=== PATIENT | male | born 1970 | race Caucasian/White ===

== ENCOUNTER 2018-04-25 09:50 | Inpatient (IN) | payer BC ==
[2018-04-25 09:53] VITALS: BMI 27.3
--- NOTE | 2018-04-25 11:06 | ED PDOC ---
Arrival/HPI - General Chief Complaint: Abnormal Skin Integrity Time Seen by Provider: 04/25/18 10:22 Historian: Patient - History of Present Illness Narrative History of Present Illness (Text): 04/25/18 11:01 47 year old male, with no significant past medical history, presents to the emergency department complaining of a boil on his buttocks, for the past 3-4 days. Patient states he has had similar symptoms in the past and was treated with antibiotic suppository. Patient denies fevers, chills, headache, dizziness, chest pain, shortness of breath, dyspnea on exertion, cough, abdominal pain, nausea, vomiting, diarrhea, back pain, neck pain, or any other complaint. PMD: Dr. Lara Time/Duration: < week Symptom Course: Unchanged Activities at Onset: Light Context: Home Past Medical History - Provider Review Nursing Documentation Reviewed: Yes - Infectious Disease Hx of Infectious Diseases: None - Psychiatric Hx Substance Use: No - Anesthesia Hx Anesthesia: No Family/Social History - Physician Review Nursing Documentation Reviewed: Yes Family/Social History: No Known Family HX Smoking Status: Never Smoked Hx Alcohol Use: Yes Hx Substance Use: No Allergies/Home Meds Allergies/Adverse Reactions: Allergies No Known Allergies Allergy (Verified 06/14/16 15:43) Review of Systems - Physician Review All systems were reviewed & negative as marked: Yes - Review of Systems Constitutional: absent: Fevers Cardiovascular: absent: Chest Pain Physical Exam - Physical Exam Narrative Physical Exam (Text): 04/25/18 11:02 Constitutional: No acute distress. Head: Normocephalic. Atraumatic. Eyes: PERRL. ENT: Moist mucous membranes. Neck: Supple. Cardiovascular: Regular rate. Chest: No tenderness. Respiratory: Clear to auscultation bilaterally. GI: Soft. Nontender. Nondistended. Back: No CVA tenderness. Musculoskeletal: No tenderness or swelling of extremities. Skin: No rash. Neurologic: Alert, no focal deficit. Rectal Exam: fluctuant, erythrmatous tender mass at 3 o'clock. Vital Signs Reviewed: Yes Vital Signs Temp Pulse Resp BP Pulse Ox 04/25/18 09:56 97.7 F 55 L 18 145/91 H 98 Temperature: Afebrile Blood Pressure: Hypertensive Pulse: Bradycardic Respiratory Rate: Normal Appearance: Positive for: Well-Appearing, Non-Toxic, Comfortable Pain Distress: None Mental Status: Positive for: Alert and Oriented X 3 Medical Decision Making ED Course and Treatment: 04/25/18 11:06 Impression: 47 year old male who presents to the emergency department complaining of boil on buttocks. Plan: -- Reassess and disposition Prior Visits: Notes and results from previous visits were reviewed. Progress Notes: Dr. Mcfarlane consulted, will take patient to OR tomorrow for drainage and further evaluation as patient has recurrent perirectal abscess. Accepted to hospitalist case. - Scribe Statement The provider has reviewed the documentation as recorded by the Scribe Jud Camargo Provider Scribe Attestation: All medical record entries made by the Scribe were at my direction and personally dictated by me. I have reviewed the chart and agree that the record accurately reflects my personal performance of the history, physical exam, medical decision making, and the department course for this patient. I have also personally directed, reviewed, and agree with the discharge instructions and disposition. Disposition/Present on Arrival - Present on Arrival Any Indicators Present on Arrival: No History of DVT/PE: No History of Uncontrolled Diabetes: No Urinary Catheter: No History of Decub. Ulcer: No History Surgical Site Infection Following: None - Disposition Have Diagnosis and Disposition been Completed?: Yes Diagnosis: Perirectal abscess Disposition: HOSPITALIZED Disposition Time: 13:05 Patient Plan: Admission Condition: FAIR Referrals: FAMILY PROVIDER,NO [Non-Staff] - Follow up with primary Forms: 99Presents (Azeri)
[2018-04-25 12:16] LABS: BASO # 0.04 K/mm3 (0.0-2.0); BASO % 0.6 % (0.0-3.0); EOS # 0.2 (0.0-0.7); EOS % 2.7 % (1.5-5.0); GRAN # 3.5 (1.4-6.5); GRAN % 49.1 % (50.0-68.0); HEMOGLOBIN 16.2 g/dL (14.0-18.0); LYMPH # 2.9 (1.2-3.4); LYMPH % 40.4 % (22.0-35.0); MEAN CORPUSCULAR HEMOGLOBIN 28.2 pg (25.0-35.0); MEAN CORPUSCULAR HGB CONC 33.1 g/dl (31.0-37.0); MONO # 0.5 (0.1-0.6); MONO % 7.2 % (1.0-6.0); RBC 5.75 10^6/uL (3.5-6.1); RED CELL DISTRIBUTION WIDTH 13.3 % (11.5-14.5); WHITE BLOOD COUNT 7.1 10^3/uL (4.5-11.0)
[2018-04-25 12:22] LABS: INR 0.99; PARTIAL THROMBOPLASTIN TIME 33.5 Seconds (25.1-36.5); PROTHROMBIN TIME 11.4 SECONDS (9.4-12.5)
[2018-04-25 12:23] LABS: ALB/GLOB RATIO 1.3 (1.1-1.8); ALBUMIN 4.4 g/dL (3.0-4.8); ALT/SGPT 40 U/L (7-56); AST/SGOT 24 U/L (17-59); BLOOD UREA NITROGEN 14 mg/dL (7-21); CALCIUM 9.2 mg/dL (8.4-10.5); GFR NON-AFRICAN AMERICAN > 60
--- NOTE | 2018-04-25 13:03 | CP.PCM.CON ---
History of Present Illness - History of Present Illness History of Present Illness: General Surgery Consult Note for Dr. Mcfarlane Consult: Perianal abscess CC: "pain around buttocks" HPI: 47 year old male, no significant past medical history, presents with recurring perianal abscess at the 3 o clock position that started a few days ago. He had a previous perianal abscess in a different area about 1 year ago that resolved with PO antibiotics. Patient states pain is 8/10, that is worse with movement. He applied topical antibiotic ointment that improved symptoms. Tylenol also helped with the pain. Denies active discharge from the site. Denies bloody or mucous bowel movements, straining, constipation, or diarrhea. Patient has never had a colonoscopy or EGD. Denies fever, chills, nausea, vomiting, shortness of breath, chest pain, or urinary symptoms. PMH: hx of perianal abscess PSH: none FH: noncontributory SH: denies tobacco, illicit drugs, social drinker ALL: NKDA Meds: see MAR Review of Systems - Constitutional Constitutional: absent: Chills, Fever - EENT Eyes: absent: Blurred Vision, Change in Vision Nose/Mouth/Throat: absent: Nasal Congestion, Nasal Discharge - Cardiovascular Cardiovascular: absent: Chest Pain, Dyspnea - Respiratory Respiratory: absent: Cough, Dyspnea - Gastrointestinal Gastrointestinal: absent: Abdominal Pain, Change in Bowel Habits, Change in Stool Character, Constipation, Diarrhea, Excessive Flatus, Fecal Incontinence, Loose Stools, Melena, Nausea, Temesmus, Vomiting - Genitourinary Genitourinary: absent: Difficulty Urinating, Dysuria - Musculoskeletal Musculoskeletal: absent: Back Pain, Neck Pain - Integumentary Integumentary: absent: Bleeding Lesions, Changing Lesions - Neurological Neurological: absent: Confusion, Headaches - Psychiatric Psychiatric: absent: Anxiety, Depression Past Patient History - Infectious Disease Hx of Infectious Diseases: None - Past Social History Smoking Status: Never Smoked - PSYCHIATRIC Hx Substance Use: No - SURGICAL HISTORY Hx Surgeries: No - ANESTHESIA Hx Anesthesia: No Meds Allergies/Adverse Reactions: Allergies Allergy/AdvReac Type Severity Reaction Status Date / Time No Known Allergies Allergy Verified 06/14/16 15:43 Physical Exam - Constitutional Appears: Well, Non-toxic, No Acute Distress - Head Exam Head Exam: ATRAUMATIC, NORMAL INSPECTION, NORMOCEPHALIC - Eye Exam Eye Exam: EOMI - ENT Exam ENT Exam: Mucous Membranes Moist - Respiratory Exam Respiratory Exam: NORMAL BREATHING PATTERN - Cardiovascular Exam Cardiovascular Exam: REGULAR RHYTHM - GI/Abdominal Exam GI & Abdominal Exam: Normal Bowel Sounds, Soft. absent: Distended, Tenderness - Rectal Exam Rectal Exam: absent: Black Stool, Bloody Stool, Hemorrhoids Additional comments: 3 o clock site in prone position good rectal tone no visible hemorrhoids, skin tags, blood, or purulence perianal abscess, no fluctuance - firm, tender, mild erythema surrounding lesion, tracking into anal canal - Neurological Exam Neurological exam: Alert, Oriented x3 - Psychiatric Exam Psychiatric exam: Normal Affect, Normal Mood - Skin Skin Exam: Dry, Intact, Normal Color, Warm Results - Vital Signs Recent Vital Signs: Last Vital Signs Temp 97.7 F 04/25/18 09:56 Pulse 55 L 04/25/18 09:56 Resp 18 04/25/18 09:56 BP 145/91 H 04/25/18 09:56 Pulse Ox 98 04/25/18 09:56 - Labs Result Diagrams: 04/25/18 12:00 04/25/18 12:00 Labs: Laboratory Results - last 24 hr 04/25/18 04/25/18 04/25/18 12:00 12:00 12:00 WBC 7.1 RBC 5.75 Hgb 16.2 Hct 48.9 MCV 85.0 MCH 28.2 MCHC 33.1 RDW 13.3 Plt Count 201 MPV 11.0 Gran % 49.1 L Lymph % (Auto) 40.4 H [place] % (Auto) 7.2 H Eos % (Auto) 2.7 Baso % (Auto) 0.6 Gran # 3.50 Lymph # (Auto) 2.9 [place] # (Auto) 0.5 Eos # (Auto) 0.2 Baso # (Auto) 0.04 PT 11.4 INR 0.99 APTT 33.5 Sodium 139 Potassium 3.9 Chloride 107 Carbon Dioxide 25 Anion Gap 11 BUN 14 Creatinine 0.8 Est GFR ( Amer) > 60 Est GFR (Non-Af Amer) > 60 Random Glucose 99 Calcium 9.2 Total Bilirubin 0.9 AST 24 ALT 40 Alkaline Phosphatase 69 Total Protein 7.7 Albumin 4.4 Globulin 3.3 Albumin/Globulin Ratio 1.3 Assessment & Plan - Assessment and Plan (Free Text) Assessment: 47M w/ perianal abscess Plan: Pelvic MRI w/ contrast - f/u official read Pain control NPO IVF AM labs PT/INR EKG CXR I&D in OR tomorrow D/w Dr. Maeve Méndez PGY1
[2018-04-25] MEDS ORDERED: Lidocaine/Prilocaine 2.5%-2.5% Cream (5 gm) TOP PRN (13:20)
[2018-04-25] MEDS ORDERED: Iohexol 350 MG/100 ML VIAL ONE (16:24)
[2018-04-25] MEDS ORDERED: Gadodiamide 287 MG/ML VIAL (15ML) IV ONE (17:22)
[2018-04-25] MEDS ORDERED: Lactated Ringer's 1,000 ML IV SCH (19:00)
[2018-04-25] MEDS: metroNIDAZOLE IV 500 mg/100 ml 500 MG/100 ML BAG IVPB SCH (22:29)
[2018-04-25] MEDS ORDERED: Influenza Vaccine 60 mcg/0.5 mL SYR (4YR UP) IM ONE (22:46)
[2018-04-25] MEDS ORDERED: Pneumococcal 23-Valent Vaccine IM ONE (22:46)
--- NOTE | 2018-04-25 23:28 | CP.PCM.HP ---
<BlancoYanira donaldson - Last Filed: 04/26/18 00:13> History of Present Illness - History of Present Illness History of Present Illness: Yanira Simeon, PGY-1 Medicine H&P Note for: Dr. Harvey: CC: Boil near rectum Pt is a 47 yo M with no significant pmhx who presents to the ED for rosa isela-rectal abscess x3 days. Pt states that for the past 3 days he has noted painful defecation and a boil located near his rectum. He states that he has noted that the boil has been progressively getting larger and more painful over the past 3 days. He states that he has had a similar episode of this before 1 year ago, where he was given suppository abx and it relieved his boil. Pt denies noting any blood or discharge from boil noted either on stool after a BM or on the toilet paper. Pt reports that his was able to use some abx cream that she had from a previous surgery which she applied to the area and it has caused the boil to reduce in size, but continues to be painful. Pt currently denies fevers, chills, headache, SOB, cough, chest pain, palpitations, leg swelling, abd pain, n/v, c/d, dysuria, hematuria, numbness, or tingling. Pmhx: Denies Pshx: Denies Meds: Denies All: NKDA Social: Denies any tobacco hx, denies etoh or illicit drug use Fam: Mom: HTN, DM PMD: [facility] Pharm: [employer] [id number] Present on Admission - Present on Admission Any Indicators Present on Admission: No Review of Systems - Review of Systems Review of Systems: 12 point ROS reviewed and negative except for noted in HPI above Past Patient History - Infectious Disease Hx of Infectious Diseases: None - Past Social History Smoking Status: Never Smoked - CARDIAC Hx Cardiac Disorders: No - PULMONARY Hx Respiratory Disorders: No - NEUROLOGICAL Hx Neurological Disorder: No - HEENT Hx HEENT Problems: No - RENAL Hx Chronic Kidney Disease: No - ENDOCRINE/METABOLIC Hx Endocrine Disorders: No - HEMATOLOGICAL/ONCOLOGICAL Hx Blood Disorders: No - INTEGUMENTARY Hx Dermatological Problems: Yes Other/Comment: PERIRECTAL ABSCESS 04-25-18 - MUSCULOSKELETAL/RHEUMATOLOGICAL Hx Musculoskeletal Disorders: No Hx Falls: No - GASTROINTESTINAL Hx Gastrointestinal Disorders: No - GENITOURINARY/GYNECOLOGICAL Hx Genitourinary Disorders: No - PSYCHIATRIC Hx Psychophysiologic Disorder: No Hx Substance Use: No - SURGICAL HISTORY Hx Surgeries: No - ANESTHESIA Hx Anesthesia: No Meds Allergies/Adverse Reactions: Allergies Allergy/AdvReac Type Severity Reaction Status Date / Time No Known Allergies Allergy Verified 04/25/18 21:48 Physical Exam - Constitutional Appears: Well, No Acute Distress - Head Exam Head Exam: ATRAUMATIC, NORMAL INSPECTION, NORMOCEPHALIC - Eye Exam Eye Exam: EOMI, Normal appearance, PERRL - Respiratory Exam Respiratory Exam: Clear to Auscultation Bilateral, NORMAL BREATHING PATTERN. absent: Accessory Muscle Use, Decreased Breath Sounds, Rales, Rhonchi, Wheezes, Respiratory Distress - Cardiovascular Exam Cardiovascular Exam: RRR, +S1, +S2. absent: Gallop, Rubs, Systolic Murmur - GI/Abdominal Exam GI & Abdominal Exam: Normal Bowel Sounds, Soft. absent: Distended, Firm, Guarding, Rigid, Tenderness - Extremities Exam Extremities exam: Positive for: normal capillary refill, normal inspection, pedal pulses present. Negative for: pedal edema - Back Exam Back exam: NORMAL INSPECTION. absent: CVA tenderness (L), CVA tenderness (R) - Neurological Exam Neurological exam: Alert, Oriented x3 - Psychiatric Exam Psychiatric exam: Normal Affect, Normal Mood - Skin Skin Exam: Dry, Intact, Normal Color, Warm Results - Vital Signs Recent Vital Signs: Last Vital Signs Temp 97.9 F 04/25/18 22:15 Pulse 69 04/25/18 22:15 Resp 16 04/25/18 22:33 BP 140/96 H 04/25/18 22:15 Pulse Ox 98 04/25/18 22:15 - Labs Result Diagrams: 04/25/18 12:00 04/25/18 12:00 Labs: Laboratory Results - last 24 hr 04/25/18 04/25/18 04/25/18 12:00 12:00 12:00 WBC 7.1 RBC 5.75 Hgb 16.2 Hct 48.9 MCV 85.0 MCH 28.2 MCHC 33.1 RDW 13.3 Plt Count 201 MPV 11.0 Gran % 49.1 L Lymph % (Auto) 40.4 H [place] % (Auto) 7.2 H Eos % (Auto) 2.7 Baso % (Auto) 0.6 Gran # 3.50 Lymph # (Auto) 2.9 [place] # (Auto) 0.5 Eos # (Auto) 0.2 Baso # (Auto) 0.04 PT 11.4 INR 0.99 APTT 33.5 Sodium 139 Potassium 3.9 Chloride 107 Carbon Dioxide 25 Anion Gap 11 BUN 14 Creatinine 0.8 Est GFR ( Amer) > 60 Est GFR (Non-Af Amer) > 60 Random Glucose 99 Calcium 9.2 Total Bilirubin 0.9 AST 24 ALT 40 Alkaline Phosphatase 69 Total Protein 7.7 Albumin 4.4 Globulin 3.3 Albumin/Globulin Ratio 1.3 Blood Type Antibody Screen BBK History Checked 04/25/18 16:00 WBC RBC Hgb Hct MCV MCH MCHC RDW Plt Count MPV Gran % Lymph % (Auto) [place] % (Auto) Eos % (Auto) Baso % (Auto) Gran # Lymph # (Auto) [place] # (Auto) Eos # (Auto) Baso # (Auto) PT INR APTT Sodium Potassium Chloride Carbon Dioxide Anion Gap BUN Creatinine Est GFR ( Amer) Est GFR (Non-Af Amer) Random Glucose Calcium Total Bilirubin AST ALT Alkaline Phosphatase Total Protein Albumin Globulin Albumin/Globulin Ratio Blood Type B POSITIVE Antibody Screen Negative BBK History Checked No verified bt Assessment & Plan - Assessment and Plan (Free Text) Assessment: Pt is a 47 yo M with no significant pmhx who presents to the ED for rosa isela-rectal abscess x3 days. Abscess noted at 3 o'clock on rectal exam. Plan: 1. Rosa Isela-rectal abscess: - Surgery consulted - EKG, CXR, Coags ordered per surgical team - NPO after midnight - I&D in OR tomorrow per surgery - IVF - Flagyl 500mg, Unasyn 3gm IV - Hold all anti-coag meds Case seen and discussed with Dr. Wes Simeon DO Internal Medicine Resident PGY-1 <Osmin Harvey - Last Filed: 04/27/18 05:40> Results - Vital Signs Recent Vital Signs: Last Vital Signs Temp 97.5 F L 04/26/18 23:18 Pulse 85 04/26/18 23:18 Resp 16 04/26/18 23:18 BP 113/77 11/29/18 23:18 Pulse Ox 99 04/26/18 23:18 - Labs Result Diagrams: 04/26/18 07:00 04/26/18 07:00 Labs: Laboratory Results - last 24 hr 04/26/18 04/26/18 04/26/18 07:00 07:00 07:00 WBC 7.2 RBC 5.37 Hgb 15.0 Hct 45.3 MCV 84.4 MCH 27.9 MCHC 33.1 RDW 13.4 Plt Count 191 MPV 10.5 PT 11.2 INR 0.97 APTT 32.3 Sodium Potassium Chloride Carbon Dioxide Anion Gap BUN Creatinine Est GFR ( Amer) Est GFR (Non-Af Amer) Random Glucose Calcium Phosphorus Magnesium Urine Color Urine Appearance Urine pH Ur Specific [place] Urine Protein Urine Glucose (UA) Urine Ketones Urine Blood Urine Nitrate Urine Bilirubin Urine Urobilinogen Ur Leukocyte Esterase Blood Type Confirm B POSITIVE 04/26/18 04/26/18 07:00 11:00 WBC RBC Hgb Hct MCV MCH MCHC RDW Plt Count MPV PT INR APTT Sodium 140 Potassium 4.0 Chloride 109 H Carbon Dioxide 25 Anion Gap 10 BUN 13 Creatinine 0.9 Est GFR ( Amer) > 60 Est GFR (Non-Af Amer) > 60 Random Glucose 110 Calcium 8.7 Phosphorus 3.8 Magnesium 2.4 H Urine Color Yellow Urine Appearance Clear Urine pH 6.0 Ur Specific [place] 1.025 Urine Protein Negative Urine Glucose (UA) Negative Urine Ketones Negative Urine Blood Negative Urine Nitrate Negative Urine Bilirubin Negative Urine Urobilinogen 0.2 Ur Leukocyte Esterase Negative Blood Type Confirm Attending/Attestation - Attestation I have personally seen and examined this patient.: Yes I have fully participated in the care of the patient.: Yes I have reviewed all pertinent clinical information: Yes
[2018-04-26] MEDS: metroNIDAZOLE IV 500 mg/100 ml 500 MG/100 ML BAG IVPB SCH (05:36)
[2018-04-26 07:17] LABS: MEAN CELL VOLUME 84.4 fl (80.0-105.0); MEAN CORPUSCULAR HEMOGLOBIN 27.9 pg (25.0-35.0); MEAN CORPUSCULAR HGB CONC 33.1 g/dl (31.0-37.0); MEAN PLATELET VOLUME 10.5 fl (7.0-11.0); RBC 5.37 10^6/uL (3.5-6.1); RED CELL DISTRIBUTION WIDTH 13.4 % (11.5-14.5); WHITE BLOOD COUNT 7.2 10^3/uL (4.5-11.0)
--- NOTE | 2018-04-26 07:29 | RAD ---
Date of service: 04/25/2018 HISTORY: pre-op COMPARISON: No prior. FINDINGS: LUNGS: No active pulmonary disease. PLEURA: No significant pleural effusion identified, no pneumothorax apparent. CARDIOVASCULAR: No aortic atherosclerotic calcification present. Normal cardiac size. No pulmonary vascular congestion. OSSEOUS STRUCTURES: No significant abnormalities. VISUALIZED UPPER ABDOMEN: Normal. OTHER FINDINGS: None. IMPRESSION: No acute cardiopulmonary disease appreciated.
[2018-04-26 07:31] LABS: INR 0.97; PARTIAL THROMBOPLASTIN TIME 32.3 Seconds (25.1-36.5); PROTHROMBIN TIME 11.2 SECONDS (9.4-12.5)
[2018-04-26 07:33] LABS: BLOOD UREA NITROGEN 13 mg/dL (7-21); CALCIUM 8.7 mg/dL (8.4-10.5); GFR NON-AFRICAN AMERICAN > 60
--- NOTE | 2018-04-26 08:11 | CP.PCM.PN ---
<Familia Bunn - Last Filed: 04/26/18 13:57> Subjective - Date & Time of Evaluation Date of Evaluation: 04/26/18 Time of Evaluation: 07:30 - Subjective Subjective: Familia Bunn PGY-1 Progress Note for Hospitalist Service Patient seen and evaluated at bedside. No acute events reported overnight. Patient states rectal abscess has some associated pain, although it has improved since initial admission. Patient set to go to OR today for I&D. Objective - Vital Signs/Intake and Output Vital Signs (last 24 hours): Temp Pulse Resp BP Pulse Ox 97.9 F 69 16 140/96 H 98 04/25/18 22:15 04/25/18 22:15 04/25/18 22:33 04/25/18 22:15 04/25/18 22:15 Intake and Output: 04/26/18 04/26/18 06:59 18:59 Intake Total 1328 Balance 1328 - Medications Medications: Current Medications Lactated Ringer's (Lactated Ringer's) 1,000 mls @ 120 mls/hr IV .Q8H20M UMER Last Admin: 04/25/18 19:24 Dose: 120 mls/hr Metronidazole (Flagyl) 500 mg in 100 mls @ 100 mls/hr IVPB Q8 UMER; Protocol Last Admin: 04/26/18 05:36 Dose: 100 mls/hr Ampicillin Sodium/Sulbactam (Sodium 3 gm/ Sodium Chloride) 100 mls @ 200 mls/hr IVPB Q6 UMER; Protocol Last Admin: 04/26/18 05:37 Dose: 200 mls/hr Lidocaine/Prilocaine (Emla) 1 gm TOP Q2H PRN PRN Reason: Pain, moderate (4-7) Last Admin: 04/25/18 14:30 Dose: 1 gm - Labs Labs: 04/26/18 07:00 04/26/18 07:00 PT 11.2 SECONDS (9.4-12.5) 04/26/18 07:00 INR 0.97 04/26/18 07:00 APTT 32.3 Seconds (25.1-36.5) 04/26/18 07:00 - Additional Findings Additional findings: - Constitutional Appears: Well, No Acute Distress - Head Exam Head Exam: ATRAUMATIC, NORMAL INSPECTION, NORMOCEPHALIC - Eye Exam Eye Exam: EOMI, Normal appearance, PERRL - Respiratory Exam Respiratory Exam: Clear to Auscultation Bilateral, NORMAL BREATHING PATTERN. absent: Accessory Muscle Use, Decreased Breath Sounds, Rales, Rhonchi, Wheezes, Respiratory Distress - Cardiovascular Exam Cardiovascular Exam: RRR, +S1, +S2. absent: Gallop, Rubs, Systolic Murmur - GI/Abdominal Exam GI & Abdominal Exam: Normal Bowel Sounds, Soft. absent: Distended, Firm, Guarding, Rigid, Tenderness - Extremities Exam Extremities exam: Positive for: normal capillary refill, normal inspection, pedal pulses present. Negative for: pedal edema - Back Exam Back exam: NORMAL INSPECTION. absent: CVA tenderness (L), CVA tenderness (R) - Neurological Exam Neurological exam: Alert, Oriented x3 - Psychiatric Exam Psychiatric exam: Normal Affect, Normal Mood - Skin Skin Exam: Dry, Intact, Normal Color, Warm Rectal exam performed with nurse at bedside. 2 cm firm, tender non fluctuant perianal collection at 2 oclock with patient in lateral recumbent position Assessment and Plan - Assessment and Plan (Free Text) Assessment: Mr. Meyer is a 47 y/o M with history of multiple rectal abscesses controlle d on PO or topical ABx who presents for rectal pain, found to have rosa isela-rectal abscess. Plan: Rectal pain 2/2 Rosa Isela-rectal abscess vs hemmorhoid - OR this morning likely for incision and drainage. F/u path results - Surgery consulted - Dr. Mcfarlane - CXR shows no active cardiopulmonary disease - Pain control with Percocet - Zofran, Metoclopramide - Sitz baths - IVF LR @ 120 cc/hr - Flagyl 500mg, Unasyn 3gm IV q6 - F/u MRI pelvis Dispo: Regular diet, if tolerate can likely be discharged tonight/tomorrow per surgery recs Patient seen, case reviewed and plan approved by Dr. Emmanuel. Familia Bunn, PGY-1 <Dara Emmanuel - Last Filed: 04/28/18 11:57> Objective - Vital Signs/Intake and Output Vital Signs (last 24 hours): Temp Pulse Resp BP Pulse Ox 97.9 F 63 18 135/92 H 95 04/27/18 14:43 04/27/18 14:43 04/27/18 14:43 04/27/18 14:43 04/27/18 14:43 - Labs Labs: 04/26/18 07:00 04/26/18 07:00 PT 11.2 SECONDS (9.4-12.5) 04/26/18 07:00 INR 0.97 04/26/18 07:00 APTT 32.3 Seconds (25.1-36.5) 04/26/18 07:00 Attending/Attestation - Attestation I have personally seen and examined this patient.: Yes I have fully participated in the care of the patient.: Yes I have reviewed all pertinent clinical information, including history, physical exam and plan: Yes Notes (Text): 04/28/18 11:57 Medical record note made by the resident after discussion with my direction and input after the patient was personally seen and examined by me. I have reviewed the chart and agree that the record accurately reflects by personal performance of the history, physical exam, data review, and medical decision-making, in the course for the patient. I have also personally directed the plan of care.
[2018-04-26] MEDS ORDERED: Propofol 10 mg/ml Inj (20 ML) ONE (10:43)
[2018-04-26] MEDS ORDERED: Midazolam 2 MG/2 ML VIAL ONE (10:44)
[2018-04-26] MEDS ORDERED: Sevoflurane - Inhalation Anesthetic Liq (250 ml) ONE (11:01)
[2018-04-26 11:08] LABS: URINE BILIRUBIN NEGATIVE (NEGATIVE); URINE BLOOD NEGATIVE (NEGATIVE); URINE GLUCOSE (UA) NEGATIVE (NEGATIVE); URINE LEUKOCYTE ESTERASE NEGATIVE Leu/uL (NEGATIVE); URINE PROTEIN NEGATIVE mg/dL (<30 mg/dL); URINE UROBILINOGEN 0.2 E.U./dL (<1 E.U./dL)
[2018-04-26 11:11] LABS: URINE APPEARANCE CLEAR (CLEAR); URINE COLOR YELLOW (YELLOW)
[2018-04-26] MEDS ORDERED: Rocuronium 10 mg/ml (5 ml) ONE (11:23)
[2018-04-26] MEDS ORDERED: ePHEDrine 50 mg/ml Inj ONE (11:29)
[2018-04-26] MEDS ORDERED: Bupivacaine 0.25% 50 ML INJ IJ ONE (11:38)
[2018-04-26] MEDS ORDERED: Lidocaine 1% w Epi 1:100,000 Inj ONE (11:38)
[2018-04-26] MEDS ORDERED: Lidocaine 1% w Epi 1:100,000 Inj IJ ONE (12:05)
[2018-04-26] MEDS ORDERED: Bupivacaine 0.25% Inj(30mL) IJ ONE (12:05)
--- NOTE | 2018-04-26 12:31 | PCM.SURG1 ---
Surgeon's Initial Post Op Note - Surgeon's Notes Surgeon: Dr. Mcfarlane Instructor Industrial Design: Dr. Méndez Type of Anesthesia: General LMA, Block Regional, Local Pre-Operative Diagnosis: Perianal abscess Operative Findings: thrombosed external hemorrhoids, internal hemorrhoids Post-Operative Diagnosis: thrombosed external hemorrhoids Operation Performed: EUA, perineal ultrasound, hemorrhoidectomy, regional block Specimen/Specimens Removed: thrombosed hemorrhoid Estimated Blood Loss: EBL {In ML}: 15 Blood Products Given: N/A Drains Used: No Drains Post-Op Condition: Good Date of Surgery/Procedure: 04/26/18 Time of Surgery/Procedure: 12:31
[2018-04-26] MEDS ORDERED: Oxycodone/Acetaminophen 5/325 mg Tab PO PRN (12:32)
--- NOTE | 2018-04-26 13:54 | CARD ---
APPROVED REPORT Date of service: 04/25/2018 EKG Measurement Heart [id number] NM [id number] <Conclusion> Normal sinus rhythm Normal ECG
[2018-04-26] MEDS: Oxycodone/Acetaminophen 5/325 mg Tab PO PRN ×2 (14:27→20:41)
--- NOTE | 2018-04-26 15:55 | MRI ---
Date of service: 04/25/2018 PROCEDURE: MRI pelvis with and without gadolinium HISTORY: perianal abscess, possible fistula COMPARISON: Not available TECHNIQUE: Multiplanar, multi sequence imaging of the pelvis was performed with and without intravenous gadolinium administration. The examination was performed with a capsule marker adjacent to the area of concern along the gluteal crease. FINDINGS: There is a peripherally enhancing perianal collection at approximately the 7 o'clock position. This collection measures approximately different axial hand is sister fat 0.8 x 1.3 x 1.6 cm. No definite sinus tract is demonstrated. There is thin peripheral enhancement around a low signal center on post gadolinium fat sat images. The collection is seen just cephalad to the level of the cutaneous marker. There is no other collection identified. The prostate and seminal vesicles are unremarkable. The rectum is unremarkable in appearance. The urinary bladder is normal in appearance, with a thin smooth wall. The urethra is grossly normal. IMPRESSION: 1.6 cm perianal abscess to the right of the gluteal crease, adjacent to the skin surface without demonstrated sinus tract.. No additional abnormality. The preliminary findings for this examination were reported by [facility] at 8:58 p.m. on 04/25/2018.. There is concurrence of this report with the preliminary findings.
[2018-04-27] MEDS: Oxycodone/Acetaminophen 5/325 mg Tab PO PRN ×2 (05:47→10:13)
--- NOTE | 2018-04-27 07:28 | CP.PCM.PCO ---
Physician Communication Note - Physician Communication Note Physician Communication Note: cleared for d/c f/u Dr. Mcfarlane in 2 weeks, call office for appt
--- NOTE | 2018-04-27 13:29 | CP.PCM.DIS ---
<OniFamilia - Last Filed: 04/27/18 13:15> Provider - Provider Date of Admission: 04/25/18 18:54 Attending physician: Dara Emmanuel MD Primary care physician: Yoan Lara MD Consults: Consulting Provider: Campbell Mcfarlane Time Spent in preparation of Discharge (in minutes): 40 Hospital Course - Lab Results Lab Results: Most Recent Lab Values WBC 7.2 10^3/uL (4.5-11.0) 04/26/18 07:00 RBC 5.37 10^6/uL (3.5-6.1) 04/26/18 07:00 Hgb 15.0 g/dL (14.0-18.0) 04/26/18 07:00 Hct 45.3 % (42.0-52.0) 04/26/18 07:00 MCV 84.4 fl (80.0-105.0) 04/26/18 07:00 MCH 27.9 pg (25.0-35.0) 04/26/18 07:00 MCHC 33.1 g/dl (31.0-37.0) 04/26/18 07:00 RDW 13.4 % (11.5-14.5) 04/26/18 07:00 Plt Count 191 10^3/uL (120.0-450.0) 04/26/18 07:00 MPV 10.5 fl (7.0-11.0) 04/26/18 07:00 Gran % 49.1 % (50.0-68.0) L 04/25/18 12:00 Lymph % (Auto) 40.4 % (22.0-35.0) H 04/25/18 12:00 Sibley % (Auto) 7.2 % (1.0-6.0) H 04/25/18 12:00 Eos % (Auto) 2.7 % (1.5-5.0) 04/25/18 12:00 Baso % (Auto) 0.6 % (0.0-3.0) 04/25/18 12:00 Gran # 3.50 (1.4-6.5) 04/25/18 12:00 Lymph # (Auto) 2.9 (1.2-3.4) 04/25/18 12:00 Sibley # (Auto) 0.5 (0.1-0.6) 04/25/18 12:00 Eos # (Auto) 0.2 (0.0-0.7) 04/25/18 12:00 Baso # (Auto) 0.04 K/mm3 (0.0-2.0) 04/25/18 12:00 PT 11.2 SECONDS (9.4-12.5) 04/26/18 07:00 INR 0.97 04/26/18 07:00 APTT 32.3 Seconds (25.1-36.5) 04/26/18 07:00 Sodium 140 mmol/L (132-148) 04/26/18 07:00 Potassium 4.0 mmol/L (3.6-5.0) 04/26/18 07:00 Chloride 109 mmol/L (98-107) H 04/26/18 07:00 Carbon Dioxide 25 mmol/L (21-33) 04/26/18 07:00 Anion Gap 10 (10-20) 04/26/18 07:00 BUN 13 mg/dL (7-21) 04/26/18 07:00 Creatinine 0.9 mg/dl (0.8-1.5) 04/26/18 07:00 Est GFR ( Amer) > 60 04/26/18 07:00 Est GFR (Non-Af Amer) > 60 04/26/18 07:00 Random Glucose 110 mg/dL (70-110) 04/26/18 07:00 Calcium 8.7 mg/dL (8.4-10.5) 04/26/18 07:00 Phosphorus 3.8 mg/dL (2.5-4.5) 04/26/18 07:00 Magnesium 2.4 mg/dL (1.7-2.2) H 04/26/18 07:00 Total Bilirubin 0.9 mg/dL (0.2-1.3) 04/25/18 12:00 AST 24 U/L (17-59) 04/25/18 12:00 ALT 40 U/L (7-56) 04/25/18 12:00 Alkaline Phosphatase 69 U/L (38-126) 04/25/18 12:00 Total Protein 7.7 g/dL (5.8-8.3) 04/25/18 12:00 Albumin 4.4 g/dL (3.0-4.8) 04/25/18 12:00 Globulin 3.3 gm/dL 04/25/18 12:00 Albumin/Globulin Ratio 1.3 (1.1-1.8) 04/25/18 12:00 Urine Color Yellow (YELLOW) 04/26/18 11:00 Urine Appearance Clear (CLEAR) 04/26/18 11:00 Urine pH 6.0 (4.7-8.0) 04/26/18 11:00 Ur Specific Beverly 1.025 (1.005-1.035) 04/26/18 11:00 Urine Protein Negative mg/dL (<30 mg/dL) 04/26/18 11:00 Urine Glucose (UA) Negative mg/dL (NEGATIVE) 04/26/18 11:00 Urine Ketones Negative mg/dL (NEGATIVE) 04/26/18 11:00 Urine Blood Negative (NEGATIVE) 04/26/18 11:00 Urine Nitrate Negative (NEGATIVE) 04/26/18 11:00 Urine Bilirubin Negative (NEGATIVE) 04/26/18 11:00 Urine Urobilinogen 0.2 E.U./dL (<1 E.U./dL) 04/26/18 11:00 Ur Leukocyte Esterase Negative Angle/uL (NEGATIVE) 04/26/18 11:00 Blood Type B POSITIVE 04/25/18 16:00 Blood Type Confirm B POSITIVE 04/26/18 07:00 Antibody Screen Negative 04/25/18 16:00 BBK History Checked No verified bt 04/25/18 16:00 - Hospital Course Hospital Course: Familia Bunn, PGY-1 Discharge Summary for Hospitalist Service 47 year old M with no significant past medical history who presents for rectal pain for 3 days. He states that he has had a similar episode before 1 year ago, where he was given suppository and topical antibiotics with relief. Patient denies noting any blood or discharge from rectum. MRI pelvis was ordered which showed perianal collection. Urinalysis was negative. No leukocytosis or fever. Surgery was consulted, and patient was put on Flagyl and Unasyn along with Zofran and Metoclopramide for nausea. Next day, patient was taken to OR for possible incision and drainage and was found to have a thrombosed internal and external hemmorhoids and an external hemmoroidectomy was performed. No abscess was noted. Patient overnight then tolerated dinner and breakfast on regular diet and passed a bowel movement. Pain has been controlled. Patient is hemodynamically stable and was given insrtuctions for home pain meds along with topical pain medication and sitz baths. Patient recommended to follow up with PCP and surgeon within one week. Patient seen, case reviewed and plan approved with Dr. Emmanuel. Discharge Exam - Head Exam Head Exam: ATRAUMATIC, NORMAL INSPECTION, NORMOCEPHALIC Discharge Plan - Discharge Medications Prescriptions: Docusate Sodium [Colace] 100 mg PO DAILY 30 Days #30 capsule Ibuprofen [Motrin] 600 mg PO Q6H PRN 6 Days #24 tab PRN Reason: Pain, Moderate (4-7) Lidocaine/Prilocaine 2.5%-2.5% [Emla 2.5%-2.5%] 1 cre TP Q6H PRN 14 Days #1 tube PRN Reason: Pain, Mild (1-3) - Follow Up Plan Condition: FAIR Disposition: HOME/ ROUTINE Instructions: Hemorrhoids (DC), Hemorrhoidectomy (DC) Additional Instructions: Please follow up with Dr. Mcfarlane, your surgeon, at his [place] office in 1 week. Please call to schedule your appointment. Please take pain medications provided, Motrin, as needed. Do not take on an empty stomach. Please follow up with your PCP Dr. Lara within one week. Encourage a high fiber diet. Avoid spicy foods. Avoid constipation. Sitz baths and lidocaine gel for relief of symptoms. If symptoms worsen, including but not limited to fevers, please return to the ED. Referrals: Yoan Lara MD [Primary Care Provider] - Campbell Mcfarlane MD [Staff Provider] - <Dara Emmanuel - Last Filed: 04/28/18 11:57> Provider - Provider Date of Admission: 04/25/18 18:54 Attending physician: Dara Emmanuel MD Primary care physician: Yoan Lara MD Consults: 04/25/18 12:06 General Surgery Consult Stat Comment: Consulting Provider: Campbell Mcfarlane Consulting Physician: Campbell Mcfarlane Reason for Consult: perianal abscess Hospital Course - Lab Results Lab Results: Most Recent Lab Values WBC 7.2 10^3/uL (4.5-11.0) 04/26/18 07:00 RBC 5.37 10^6/uL (3.5-6.1) 04/26/18 07:00 Hgb 15.0 g/dL (14.0-18.0) 04/26/18 07:00 Hct 45.3 % (42.0-52.0) 04/26/18 07:00 MCV 84.4 fl (80.0-105.0) 04/26/18 07:00 MCH 27.9 pg (25.0-35.0) 04/26/18 07:00 MCHC 33.1 g/dl (31.0-37.0) 04/26/18 07:00 RDW 13.4 % (11.5-14.5) 04/26/18 07:00 Plt Count 191 10^3/uL (120.0-450.0) 04/26/18 07:00 MPV 10.5 fl (7.0-11.0) 04/26/18 07:00 Gran % 49.1 % (50.0-68.0) L 04/25/18 12:00 Lymph % (Auto) 40.4 % (22.0-35.0) H 04/25/18 12:00 Sibley % (Auto) 7.2 % (1.0-6.0) H 04/25/18 12:00 Eos % (Auto) 2.7 % (1.5-5.0) 04/25/18 12:00 Baso % (Auto) 0.6 % (0.0-3.0) 04/25/18 12:00 Gran # 3.50 (1.4-6.5) 04/25/18 12:00 Lymph # (Auto) 2.9 (1.2-3.4) 04/25/18 12:00 Sibley # (Auto) 0.5 (0.1-0.6) 04/25/18 12:00 Eos # (Auto) 0.2 (0.0-0.7) 04/25/18 12:00 Baso # (Auto) 0.04 K/mm3 (0.0-2.0) 04/25/18 12:00 PT 11.2 SECONDS (9.4-12.5) 04/26/18 07:00 INR 0.97 04/26/18 07:00 APTT 32.3 Seconds (25.1-36.5) 04/26/18 07:00 Sodium 140 mmol/L (132-148) 04/26/18 07:00 Potassium 4.0 mmol/L (3.6-5.0) 04/26/18 07:00 Chloride 109 mmol/L (98-107) H 04/26/18 07:00 Carbon Dioxide 25 mmol/L (21-33) 04/26/18 07:00 Anion Gap 10 (10-20) 04/26/18 07:00 BUN 13 mg/dL (7-21) 04/26/18 07:00 Creatinine 0.9 mg/dl (0.8-1.5) 04/26/18 07:00 Est GFR ( Amer) > 60 04/26/18 07:00 Est GFR (Non-Af Amer) > 60 04/26/18 07:00 Random Glucose 110 mg/dL (70-110) 04/26/18 07:00 Calcium 8.7 mg/dL (8.4-10.5) 04/26/18 07:00 Phosphorus 3.8 mg/dL (2.5-4.5) 04/26/18 07:00 Magnesium 2.4 mg/dL (1.7-2.2) H 04/26/18 07:00 Total Bilirubin 0.9 mg/dL (0.2-1.3) 04/25/18 12:00 AST 24 U/L (17-59) 04/25/18 12:00 ALT 40 U/L (7-56) 04/25/18 12:00 Alkaline Phosphatase 69 U/L (38-126) 04/25/18 12:00 Total Protein 7.7 g/dL (5.8-8.3) 04/25/18 12:00 Albumin 4.4 g/dL (3.0-4.8) 04/25/18 12:00 Globulin 3.3 gm/dL 04/25/18 12:00 Albumin/Globulin Ratio 1.3 (1.1-1.8) 04/25/18 12:00 Urine Color Yellow (YELLOW) 04/26/18 11:00 Urine Appearance Clear (CLEAR) 04/26/18 11:00 Urine pH 6.0 (4.7-8.0) 04/26/18 11:00 Ur Specific Beverly 1.025 (1.005-1.035) 04/26/18 11:00 Urine Protein Negative mg/dL (<30 mg/dL) 04/26/18 11:00 Urine Glucose (UA) Negative mg/dL (NEGATIVE) 04/26/18 11:00 Urine Ketones Negative mg/dL (NEGATIVE) 04/26/18 11:00 Urine Blood Negative (NEGATIVE) 04/26/18 11:00 Urine Nitrate Negative (NEGATIVE) 04/26/18 11:00 Urine Bilirubin Negative (NEGATIVE) 04/26/18 11:00 Urine Urobilinogen 0.2 E.U./dL (<1 E.U./dL) 04/26/18 11:00 Ur Leukocyte Esterase Negative Angle/uL (NEGATIVE) 04/26/18 11:00 Blood Type B POSITIVE 04/25/18 16:00 Blood Type Confirm B POSITIVE 04/26/18 07:00 Antibody Screen Negative 04/25/18 16:00 BBK History Checked No verified bt 04/25/18 16:00 Attending/Attestation - Attestation I have personally seen and examined this patient.: Yes I have fully participated in the care of the patient.: Yes I have reviewed all pertinent clinical information, including history, physical exam and plan: Yes Notes (Text): 04/28/18 11:54 Medical record note made by the resident after discussion with my direction and input after the patient was personally seen and examined by me. I have reviewed the chart and agree that the record accurately reflects by personal performance of the history, physical exam, data review, and medical decision-making, in the course for the patient. I have also personally directed the plan of care. 47 year old M with no significant past medical was admitted with recurrent rectal pain for 3 days. He states that he has had a similar episode before 1 year ago, where he was given suppository and topical antibiotics with relief. Patient denies noting any blood or discharge from rectum. MRI pelvis showed possible perianal collection. . Surgery was consulted, and patient was put on Flagyl and Unasyn . Next day, patient was taken to OR for possible incision and drainage and was found to have a thrombosed internal and external hemmorhoids and an external hemmoroidectomy was performed. No abscess was noted. Patient remain stable after the surgery. He is afebrile.Pain has improved.He is tolerating diet. He has been advised to avoid constipation. He will be dischaarged home and will follow up with PCP and surgery. Management plan was discussed in detail with patient. Education was provided.
[2018-04-27 14:44] VITALS: BP 135/92; PULSE 63; RESP 18; TEMP 97.9; O2SAT 95
--- NOTE | 2018-04-28 06:18 | OP ---
PROCEDURE DATE: 04/25/2018 PREOPERATIVE DIAGNOSES: 1. Anorectal abscess. 2. Internal and external hemorrhoids. 3. Thrombosed hemorrhoids. 4. Anorectal prolapse. POSTOPERATIVE DIAGNOSES: 1. Anorectal abscess. 2. Internal and external hemorrhoids. 3. Thrombosed hemorrhoids. 4. Anorectal prolapse. SURGERIES: 1. Examination under anesthesia. 2. Anoscopy. 3. Perirectal and perineal ultrasound. 4. Hemorrhoidectomy at the 7 to 9 o'clock lithotomy position. 5. Bilateral pudendal nerve block anesthesia. SURGEON: Campbell Mcfarlane MD ANESTHESIA: General endotracheal. DRAINS: None. COMPLICATIONS: None. IMPLANTS: None. ESTIMATED BLOOD LOSS: 10 mL. INTRAVENOUS FLUIDS: 1 L of Ringer's lactate. SPECIMEN: Hemorrhoids to Pathology. DISPOSITION: Stable, extubated to the recovery room. CLINICAL INFORMATION: Mr. Meyer is a 47-year-old male. 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 The symptoms became intense, so the pain being unbearable, and he checked in the [facility] on 04/24/2018. Initially, it was felt that the patient has a perirectal abscess because of the bulging in the area of the 7 to 9 o'clock lithotomy position and exquisite tenderness. The patient's temperature was normal. He denies fever at times. An MRI of the pelvic area revealed internal and external hemorrhoids and a thrombosed hemorrhoid. Based on this diagnosis and its intense symptoms, he was taken to the OR for emergency surgical intervention. CLINICAL FINDINGS: The patient had a modest amount of anorectal prolapse and a thrombosed hemorrhoid at the 7 to 9 o'clock lithotomy position and internal and external hemorrhoids. DESCRIPTION OF THE SURGERY: The patient was brought into the operating room and placed on the operating room table in the supine position. After smooth induction of general endotracheal anesthesia, Venodyne boosts were placed to both the legs, and prophylactic antibiotics were given. The patient's position was changed to lateral lithotomy using Paul stirrups, and the perineal area was prepped and draped in the usual sterile fashion. Examination under anesthesia with adequately lubricated right index finger was performed. The prostate appeared normal in size. The usual anatomic landmarks of the levator muscles and coccyx were identified. The patient had a 7 to 9 o'clock bulging, which appeared to be a thrombosed hemorrhoid, and he had also internal and external hemorrhoids. No intraluminal tumor or other pathology was identified. In a similar fashion, an inspection of anorectal canal was performed by using a Chapman anoscope appropriately lubricated. The exploration was performed up to 10 cm from the anal verge and swiped thrombosed hemorrhoid between 7 to 9 o'clock lithotomy position and then internal and external hemorrhoids in other areas of the anorectum. There was no other significant pathology identified. To ensure there was no evidence of anorectal abscess, a perineal ultrasound was employed, and there was no evidence of true perirectal abscess. The thrombosed hemorrhoid was confirmed ultrasonographically as well. Allis clamp was used to grasp the thrombosed hemorrhoid in the area of the anoderm, and the skin underlying the subcutaneous tissue was infiltrated with local anesthetic, which comprised of 0.5% Marcaine and 1% lidocaine with epinephrine in equal volumes. A marguerite-shaped incision was performed at the edge of the thrombosed hemorrhoid and was extended cephalad all the way along the rectal mucosa and all the way to the origin of the hemorrhoidal vessels. The thrombosed hemorrhoid was attached with underlying subcutaneous tissue in the anal area, and dissection was extended to the internal and external sphincters with the fibers that were attached to the thrombosed hemorrhoid being sharply and bluntly dissected free and identifying a preserved anatomic integrity of the sphincteric mechanism. Dissection continued along the submucosal level all the way to the level of the internal hemorrhoids, and the Harmonic scalpel was employed and secured the hemorrhoidal vessels. The specimen was removed from the operating field and sent to Pathology with appropriate label for permanent sections. The wound was irrigated with warm normal saline, and a few bleeders were easily controlled with Bovie electrocautery. A 0 Vicryl stitch on a UR6 needle was used to close the rectal mucosa with interrupted stitches all the way to the level of the anoderm. At which point, the 0 Vicryl stitch mounted on the UR6 needle was used to bring together the dermis of the anoderm in inverted interrupted stitches. The anorectal canal was inspected again one more time with a Chapman anoscope, and there was no evidence of bleeding from the suture line. Anoproctoplasty was performed by plicating the redundant anorectal tissue by putting stitches at the 3, 5, and 7 cm distance from the anal verge and 110-degree angle from each other and plicating essentially redundant anorectum thus creating an anoproctoplasty. A hemostatic plug, which was comprised of 4-inch Kerlix wetted in normal saline wrapped in Xeroform and secured with a 0 silk tie, was inserted under direct visualization with the Chapman anoscope into the anorectum. The pudendal nerve block anesthesia bilaterally was performed by inserting a 20-gauge needle up to 7 cm from the anal skin and medial to the ischial tuberosity and injecting 10 mL of Marcaine 0.5% on each side. Sterile dressings were applied. At the end of the surgery, the count of the instruments, gauze and needles was correct x2. The patient tolerated the surgery well and was transferred in stable condition to the recovery room. Campbell Mcfarlane MD
== END 2018-04-27 18:12 | disposition home or self-care (01) | DRG 348 ==
LOC: ED 09:50 → ERH 18:54 → 5RSO 21:30
PROVIDERS: ADMIT Internal Medicine; ATTEND Internal Medicine
PROC: 3E0T3BZ Introduction of Anesthetic Agent into Peripheral Nerves and Plexi, Percutaneous Approach (ICD-10-PCS; 2018-04-26)
PROC: 06BY0ZC Excision of Hemorrhoidal Plexus, Open Approach (ICD-10-PCS; principal; 2018-04-26 10:45)
DX: K64.5 Perianal venous thrombosis (principal); K61.2 Anorectal abscess; K64.4 Residual hemorrhoidal skin tags; K64.8 Other hemorrhoids